=== PATIENT | female | born 1990 | race Caucasian/White ===

== ENCOUNTER 2018-04-26 18:34 | Emergency (ER) | payer MEDICAID ==
[~2018-04-26] VITALS: Ht 162.6 cm; Wt 84.8 kg
[2018-04-26 18:48] VITALS: Ht 162.6 cm; Wt 84.8 kg
[2018-04-26 20:26] LABS: BASOPHIL % 0.3 % (0-2); PLATELET COUNT 219 x10^3mcL (130-400); RED CELL DISTRIBUTION WIDTH 12.9 % (11.5-14.5)
[2018-04-26 20:27] LABS: microscopic required? YES; urine erythrocyte 3+ (NEGATIVE)
[2018-04-26 23:48] VITALS: BP 125/82
== END 2018-04-26 23:48 | disposition home or self-care (01) ==
LOC: ED 18:34
PROVIDERS: Emergency Medicine
DX: O03.9 Complete or unspecified spontaneous abortion without complication (principal)
CPT/HCPCS: J2590; J7030